=== PATIENT | male | born 1960 | race Caucasian/White ===

== ENCOUNTER 2020-11-04 10:50 | Emergency (ER) | payer OTHER ==
[~2020-11-04] VITALS: Ht 177.8 cm; Wt 111.1 kg
[~2020-11-04 10:50] MED LIST: ASPIRIN EC325 M1 PO; FISH OIL + D31 EACH PO; GLUCOSAMINE HC100 GM; PRILOSEC40 MG PO
[2020-11-04] MEDS ORDERED: PREDNISONE 20 M20 MG PO (11:03)
[2020-11-04] MEDS ORDERED: MELOXICAM7.5 MG PO (11:03)
[2020-11-04] MEDS ORDERED: BENADRYL25 MG PO (11:04)
[2020-11-04] MEDS ORDERED: AZITHROMYCIN500 MG PO (11:04)
[2020-11-04] MEDS ORDERED: FLEXERIL PO ×3 (12:33→12:52)
[2020-11-04] MEDS ORDERED: HYDROCODON-ACE1 EAC7 PO (12:52)
[2020-11-04 12:55] VITALS: BP 134/72
== END 2020-11-04 12:56 | disposition home or self-care (01) ==
LOC: M.ERS 10:50
DX: S32.040A Wedge compression fracture of fourth lumbar vertebra, initial encounter for closed fracture (principal); Z79.899 Other long term (current) drug therapy; W18.39XA Other fall on same level, initial encounter; Y93.68 Activity, volleyball (beach) (court); Y92.89 Other specified places as the place of occurrence of the external cause; Y99.8 Other external cause status